=== PATIENT | female | born 1945 | race Two or more races ===

== ENCOUNTER 2020-02-18 20:25 | Inpatient (IN) | payer MEDICARE, BC ==
[~2020-02-18] VITALS: Ht 157.5 cm; Wt 102.1 kg
[~2020-02-18 20:25] MED LIST: ALBU90AE INH; ASPI-1158 PO; FURO40TA5 PO; ISOS30TA6 PO; LEVOTHYROXINE; LOPE2CAP PO; LOSA25TA3 PO; METO-396 PO; NIFE90TA2 MT; NITR0.4T49 SL; OMEP20CA14 PO; PRAS10TA9 PO; SEVE0.8P PO; SIMV80TA90 MT
[2020-02-18 22:17] LABS: HEMATOCRIT. 26.6 % (36.0-48.0); HEMOGLOBIN. 8.9 g/dL (12.0-16.0); MEAN CORPUSCULAR HEMOGLOBIN 32.9 pg (28.0-32.0); MEAN CORPUSCULAR VOLUME 98.3 fL (81.0-99.0); MEAN PLATELET VOLUME 7.4 fl (7.4-10.4); PLATELET 197 x1000/uL (130-400); RED BLOOD CELL COUNT 2.71 mill/uL (4.2-5.4); RED CELL DISTRIBUTION WIDTH 20.3 % (11.6-14.6)
[2020-02-18 22:20] LABS: CHLORIDE 97 mEq/L (98-107)
[2020-02-18 22:31] LABS: PLATELET ESTIMATE NORMAL
[2020-02-19] VITALS (35 sets, daily range): BP systolic 59–168; BP diastolic 18–126
[2020-02-19] MEDS ORDERED: IPRATROPIUM/ALBUTEROL 0.5-3(2.5)MG/3ML NEB HHN PRN (10:45)
[2020-02-19] MEDS ORDERED: ASPI-1079 PO (10:47)
[2020-02-19] MEDS ORDERED: NYST100026 (10:50)
[2020-02-19] MEDS ORDERED: FAMO20TA8 PO (10:52)
[2020-02-19] MEDS ORDERED: DOCU-138 MT (10:52)
[2020-02-19] MEDS: AZITHROMYCIN 500 MG TABLET PO SCH (11:24)
[2020-02-19] MEDS: ENOXAPARIN 40MG/0.4ML SYR SUBCUT SCH (11:24)
[2020-02-19] MEDS ORDERED: VECURONIUM BROMIDE 10 MG/VIAL IV ONE (12:53)
[2020-02-19] MEDS ORDERED: ETOMIDATE 2MG/ML 10ML VIAL IV ONE (12:53)
[2020-02-19] MEDS ORDERED: DEXTROSE 50% WATER 50ML SYRINGE IV PRN (13:00)
[2020-02-19] MEDS ORDERED: VANCOMYCIN 1,750 MG in DEXT 5% WATER 500 ML IV SCH (15:00)
[2020-02-19 15:25] LABS: BG BASE EXCESS -6.6 mmol/L (-2.0-2.0); BG CARBOXYHEMOGLOBIN 0.3 % (0.5-1.5); BG DEOXYHEMOGLOBIN 0.9 % (0.0-5.0); BG FRACTION INSPIRED OXYGEN 100; BG HCO3 ACT 19.5 mmol/L (22.0-26.0); BG METHEMOGLOBIN 0.4 % (0.0-1.5); BG OXYGEN SATURATION 99.1 % (92.0-98.5); BG OXYHEMOGLOBIN 98.4 % (94.0-97.0); BG PCO2 41.1 mmHg (35.0-45.0); BG PH 7.293 (7.350-7.450); BG PO2 185.5 mmHg (75.0-100.0); BG SAMPLE SITE RIGHT BRACHIAL; BG TIDAL VOLUME(mL) 550 mL; BG TOTAL HEMOGLOBIN 10.1 g/dL (12.0-18.0); BG VENT MODE VENT - A/C; BG VENT RATE 14 set
[2020-02-19] MEDS: BLOOD SUGAR DIAGNOSTIC STRIP TEST SCH ×2 (16:30→21:31)
[2020-02-19] MEDS: PROPOFOL 10MG/ML 100ML 100 ML IV PRN ×3 (16:32→19:55)
[2020-02-19] MEDS: INSULIN LISPRO 100 UNITS/ML SUBCUT SCH ×2 (17:00→21:32)
[2020-02-19] MEDS: FENTANYL CITRATE/PF 500 MCG in SODIUM CHLORIDE 0.9% 40 ML IV PRN ×2 (19:00→23:47)
[2020-02-19] MEDS: CEFTRIAXONE 1 G PREMIX 50 ML IV SCH (19:30)
[2020-02-19] MEDS: EPOETIN ALFA 10000UNITS/ML VIAL SUBCUT SCH (21:09)
[2020-02-19] MEDS: INSULIN GLARGINE UD 100 UNITS/ML SYR SUBCUT SCH (21:09)
[2020-02-19] MEDS ORDERED: SODIUM CHLORIDE 0.9% 250 ML IV ONE (21:45)
[2020-02-19] MEDS ORDERED: DOPAMINE 400MG/250ML PREMIX 250 ML IV PRN (21:45)
[2020-02-20] VITALS (99 sets, daily range): BP systolic 37–181; BP diastolic 15–144
[2020-02-20] MEDS: FENTANYL CITRATE/PF 500 MCG in SODIUM CHLORIDE 0.9% 40 ML IV PRN ×3 (04:29→19:07)
[2020-02-20 05:11] LABS: BASOPHILS % 0.3 % (0.0-2.0); EOSINOPHILS % 0.1 % (0.0-5.0); HEMATOCRIT. 28.2 % (36.0-48.0); HEMOGLOBIN. 9.2 g/dL (12.0-16.0); LYMPHOCYTES % 7.6 % (20.0-50.0); MEAN CORPUSCULAR HEMOGLOBIN 32.8 pg (28.0-32.0); MEAN PLATELET VOLUME 7.7 fl (7.4-10.4); MONOCYTES % 5.9 % (2.0-8.0); NEUTROPHILS % 86.1 % (40.0-76.0); PLATELET 216 x1000/uL (130-400); RED BLOOD CELL COUNT 2.82 mill/uL (4.2-5.4); RED CELL DISTRIBUTION WIDTH 20.7 % (11.6-14.6)
[2020-02-20] MEDS: BLOOD SUGAR DIAGNOSTIC STRIP TEST SCH ×4 (06:54→21:00)
[2020-02-20] MEDS: INSULIN LISPRO 100 UNITS/ML SUBCUT SCH ×4 (06:54→21:00)
[2020-02-20] MEDS ORDERED: PHENYLEPHRINE 20 MG in DEXT 5% WATER 248 ML IV PRN (08:15)
[2020-02-20] MEDS: IPRATROPIUM BROMIDE (0.02%) 0.5MG/2.5ML NEB HHN SCH ×3 (08:25→20:40)
[2020-02-20] MEDS: ASPIRIN 81MG TABLET PO SCH (09:00)
[2020-02-20] MEDS: AZITHROMYCIN 500 MG TABLET PO SCH (09:00)
[2020-02-20] MEDS: PANTOPRAZOLE SODIUM 40 MG/VIAL IV SCH (09:40)
[2020-02-20] MEDS: INSULIN GLARGINE UD 100 UNITS/ML SYR SUBCUT SCH ×2 (10:00→22:34)
[2020-02-20] MEDS: ENOXAPARIN 40MG/0.4ML SYR SUBCUT SCH (11:00)
[2020-02-20] MEDS ORDERED: NOREPINEPHRINE 4 MG in DEXT 5% WATER 250 ML IV PRN (11:15)
[2020-02-20] MEDS ORDERED: PHENYLEPHRINE IV PRN (11:54)
[2020-02-20] MEDS ORDERED: DEXT 5% IV PRN (11:54)
[2020-02-20] MEDS ORDERED: NOREPINEPHRINE 16 MG in DEXT 5% WATER 250 ML IV PRN (11:54)
[2020-02-20] MEDS ORDERED: WATER IV PRN (11:54)
[2020-02-20] MEDS: CEFTRIAXONE 1 G PREMIX 50 ML IV SCH (14:00)
[2020-02-20] MEDS: DAPTOMYCIN 250 MG in SODIUM CHLORIDE 0.9% 50 ML IV SCH (16:00)
[2020-02-20] MEDS ORDERED: VANCOMYCIN 1,750 MG in DEXT 5% WATER 500 ML IV SCH (16:00)
[2020-02-20] MEDS: PHENYLEPHRINE 40 MG in DEXTROSE 5% WATER 250 ML IV PRN ×2 (16:18→20:14)
[2020-02-20] MEDS ORDERED: DIGOXIN 500MCG/2ML AMP IV NR (16:30)
[2020-02-20] MEDS: DILTIAZEM HCL 125 MG in DEXT 5% WATER 100 ML IV PRN (19:06)
[2020-02-20 20:15] LABS: BG BASE EXCESS -19.3 mmol/L (-2.0-2.0); BG CARBOXYHEMOGLOBIN 0.2 % (0.5-1.5); BG DEOXYHEMOGLOBIN 2.4 % (0.0-5.0); BG FRACTION INSPIRED OXYGEN 100; BG HCO3 ACT 9.2 mmol/L (22.0-26.0); BG METHEMOGLOBIN 1.4 % (0.0-1.5); BG OXYGEN SATURATION 97.6 % (92.0-98.5); BG PCO2 30.6 mmHg (35.0-45.0); BG PH 7.094 (7.350-7.450); BG SAMPLE SITE LEFT RADIAL; BG TIDAL VOLUME(mL) 550 mL; BG TOTAL HEMOGLOBIN 10.5 g/dL (12.0-18.0); BG VENT MODE VENT - A/C; BG VENT RATE 14 set
[2020-02-20] MEDS ORDERED: SODIUM BICARBONATE 8.4% 1 MEQ/ML 50ML SYR IV NR (21:39)
[2020-02-21] VITALS (70 sets, daily range): BP systolic 40–174; BP diastolic 20–149
[2020-02-21] MEDS: IPRATROPIUM BROMIDE (0.02%) 0.5MG/2.5ML NEB HHN SCH ×3 (02:10→20:37)
[2020-02-21] MEDS: PHENYLEPHRINE 40 MG in DEXTROSE 5% WATER 250 ML IV PRN ×2 (03:59→07:48)
[2020-02-21 04:54] LABS: HEMATOCRIT. 25.9 % (36.0-48.0); HEMOGLOBIN. 8.4 g/dL (12.0-16.0); MEAN CORPUSCULAR HEMOGLOBIN 32.6 pg (28.0-32.0); MEAN CORPUSCULAR VOLUME 100.1 fL (81.0-99.0); PLATELET 237 x1000/uL (130-400); RED BLOOD CELL COUNT 2.59 mill/uL (4.2-5.4); RED CELL DISTRIBUTION WIDTH 20.7 % (11.6-14.6)
[2020-02-21] MEDS: FENTANYL CITRATE/PF 500 MCG in SODIUM CHLORIDE 0.9% 40 ML IV PRN ×3 (06:01→17:21)
[2020-02-21] MEDS: NOREPINEPHRINE 16 MG in DEXTROSE 5% WATER 250 ML IV PRN ×2 (06:32→17:53)
[2020-02-21] MEDS: BLOOD SUGAR DIAGNOSTIC STRIP TEST SCH ×4 (06:33→21:00)
[2020-02-21] MEDS: INSULIN LISPRO 100 UNITS/ML SUBCUT SCH ×4 (06:35→22:57)
[2020-02-21 08:36] LABS: NUCLEATED RED BLOOD CELLS 3 /100 WBC; PLATELET ESTIMATE NORMAL
[2020-02-21] MEDS: PANTOPRAZOLE SODIUM 40 MG/VIAL IV SCH (09:26)
[2020-02-21] MEDS: ASPIRIN 81MG TABLET PO SCH (09:26)
[2020-02-21] MEDS: AZITHROMYCIN 500 MG TABLET PO SCH (09:26)
[2020-02-21] MEDS ORDERED: LORAZEPAM 2MG/ML CPJ IV NR (09:26)
[2020-02-21] MEDS ORDERED: LORAZEPAM 2MG/ML CPJ ONE (09:32)
[2020-02-21 09:43] LABS: BG BASE EXCESS -12.2 mmol/L (-2.0-2.0); BG DEOXYHEMOGLOBIN 19.9 % (0.0-5.0); BG FRACTION INSPIRED OXYGEN 100; BG HCO3 ACT 11.9 mmol/L (22.0-26.0); BG METHEMOGLOBIN 0.1 % (0.0-1.5); BG OXYGEN SATURATION 80.1 % (92.0-98.5); BG PCO2 21.6 mmHg (35.0-45.0); BG PH 7.359 (7.350-7.450); BG PO2 56.6 mmHg (75.0-100.0); BG SAMPLE SITE RIGHT BRACHIAL; BG TIDAL VOLUME(mL) 550 mL; BG TOTAL HEMOGLOBIN 7.6 g/dL (12.0-18.0); BG VENT MODE VENT - A/C; BG VENT RATE 14 set
[2020-02-21] MEDS: INSULIN GLARGINE UD 100 UNITS/ML SYR SUBCUT SCH (10:00)
[2020-02-21] MEDS ORDERED: SODIUM BICARBONATE 8.4% 1 MEQ/ML 50ML SYR IV SCH (11:00)
[2020-02-21] MEDS ORDERED: VASOPRESSIN 10 UNIT in SODIUM CHLORIDE 0.9% 99.5 ML IV PRN (11:00)
[2020-02-21] MEDS: ENOXAPARIN 40MG/0.4ML SYR SUBCUT SCH (12:49)
[2020-02-21 12:54] LABS: COVID-19 PCR RNA NOT DETECTED
[2020-02-21 13:24] LABS: BG BASE EXCESS -3.6 mmol/L (-2.0-2.0); BG CARBOXYHEMOGLOBIN 0.3 % (0.5-1.5); BG DEOXYHEMOGLOBIN 9.6 % (0.0-5.0); BG FRACTION INSPIRED OXYGEN 100; BG HCO3 ACT 21.2 mmol/L (22.0-26.0); BG METHEMOGLOBIN 0.4 % (0.0-1.5); BG OXYGEN SATURATION 90.3 % (92.0-98.5); BG OXYHEMOGLOBIN 89.7 % (94.0-97.0); BG PCO2 36.9 mmHg (35.0-45.0); BG PH 7.377 (7.350-7.450); BG PO2 66.3 mmHg (75.0-100.0); BG SAMPLE SITE RIGHT BRACHIAL; BG TIDAL VOLUME(mL) 550 mL; BG TOTAL HEMOGLOBIN 7.8 g/dL (12.0-18.0); BG VENT MODE VENT - A/C- PRVC; BG VENT RATE 20 set
[2020-02-21] MEDS: CEFTRIAXONE 1 G PREMIX 50 ML IV SCH (14:15)
[2020-02-21] MEDS: DAPTOMYCIN 250 MG in SODIUM CHLORIDE 0.9% 50 ML IV SCH (17:18)
[2020-02-21] MEDS: PHENYLEPHRINE 80 MG in DEXT 5% WATER 492 ML IV PRN (17:53)
[2020-02-21] MEDS: DILTIAZEM HCL 125 MG in DEXT 5% WATER 100 ML IV PRN (17:53)
[2020-02-21] MEDS ORDERED: INSULIN GLARGINE UD 100 UNITS/ML SYR SUBCUT SCH (22:00)
[2020-02-22] VITALS (68 sets, daily range): BP systolic 91–169; BP diastolic 20–105
[2020-02-22] MEDS: PHENYLEPHRINE 80 MG in DEXT 5% WATER 492 ML IV PRN ×3 (00:15→22:09)
[2020-02-22] MEDS: FENTANYL CITRATE/PF 500 MCG in SODIUM CHLORIDE 0.9% 40 ML IV PRN ×3 (00:15→18:57)
[2020-02-22] MEDS: NOREPINEPHRINE 32 MG in DEXT 5% WATER 468 ML IV PRN ×2 (00:16→18:56)
[2020-02-22] MEDS: IPRATROPIUM BROMIDE (0.02%) 0.5MG/2.5ML NEB HHN SCH ×4 (03:58→20:30)
[2020-02-22 05:42] LABS: HEMATOCRIT. 24.3 % (36.0-48.0); MEAN CORPUSCULAR HEMOGLOBIN 32.3 pg (28.0-32.0); MEAN CORPUSCULAR VOLUME 97.4 fL (81.0-99.0); MEAN PLATELET VOLUME 8.4 fl (7.4-10.4); PLATELET 186 x1000/uL (130-400); RED CELL DISTRIBUTION WIDTH 20.9 % (11.6-14.6)
[2020-02-22] MEDS: BLOOD SUGAR DIAGNOSTIC STRIP TEST SCH ×4 (06:30→21:42)
[2020-02-22] MEDS: INSULIN LISPRO 100 UNITS/ML SUBCUT SCH ×4 (07:10→21:41)
[2020-02-22 08:16] LABS: NUCLEATED RED BLOOD CELLS 2 /100 WBC
[2020-02-22] MEDS: PANTOPRAZOLE SODIUM 40 MG/VIAL IV SCH (09:07)
[2020-02-22] MEDS: AZITHROMYCIN 500 MG TABLET PO SCH (09:07)
[2020-02-22] MEDS: ASPIRIN 81MG TABLET PO SCH (09:07)
[2020-02-22 09:12] LABS: BG BASE EXCESS 0.3 mmol/L (-2.0-2.0); BG CARBOXYHEMOGLOBIN 0.4 % (0.5-1.5); BG DEOXYHEMOGLOBIN 2.3 % (0.0-5.0); BG FRACTION INSPIRED OXYGEN 50; BG HCO3 ACT 23.9 mmol/L (22.0-26.0); BG METHEMOGLOBIN 0.4 % (0.0-1.5); BG OXYGEN SATURATION 97.7 % (92.0-98.5); BG OXYHEMOGLOBIN 96.9 % (94.0-97.0); BG PCO2 34.4 mmHg (35.0-45.0); BG PO2 100.5 mmHg (75.0-100.0); BG SAMPLE SITE RIGHT RADIAL; BG TIDAL VOLUME(mL) 550 mL; BG TOTAL HEMOGLOBIN 8.9 g/dL (12.0-18.0); BG VENT MODE VENT - A/C; BG VENT RATE 20 set
[2020-02-22] MEDS: ENOXAPARIN 40MG/0.4ML SYR SUBCUT SCH (11:09)
[2020-02-22] MEDS ORDERED: ENOXAPARIN 80MG/0.8ML SYR SUBCUT NR (13:00)
[2020-02-22] MEDS ORDERED: ENOXAPARIN 120MG/0.8ML SYR SUBCUT SCH (13:00)
[2020-02-22 13:44] LABS: PLATELET ESTIMATE NORMAL
[2020-02-22] MEDS: CEFTRIAXONE 1 G PREMIX 50 ML IV SCH (14:25)
[2020-02-22] MEDS: DAPTOMYCIN 250 MG in SODIUM CHLORIDE 0.9% 50 ML IV SCH (15:49)
[2020-02-22 15:56] LABS: INR 1.5; PROTHROMBIN TIME 15.9 sec (9.6-11.0)
[2020-02-22] MEDS: EPOETIN ALFA 10000UNITS/ML VIAL SUBCUT SCH (21:40)
[2020-02-22] MEDS: INSULIN GLARGINE UD 100 UNITS/ML SYR SUBCUT SCH (21:41)
[2020-02-23] VITALS (115 sets, daily range): BP systolic 30–185; BP diastolic 19–109
[2020-02-23] MEDS: IPRATROPIUM BROMIDE (0.02%) 0.5MG/2.5ML NEB HHN SCH ×4 (02:44→20:20)
[2020-02-23 05:43] LABS: HEMATOCRIT. 23.5 % (36.0-48.0); HEMOGLOBIN. 7.7 g/dL (12.0-16.0); MEAN CORPUSCULAR HEMOGLOBIN 32.2 pg (28.0-32.0); MEAN CORPUSCULAR VOLUME 97.8 fL (81.0-99.0); MEAN PLATELET VOLUME 8.8 fl (7.4-10.4); PLATELET 147 x1000/uL (130-400); RED CELL DISTRIBUTION WIDTH 21.3 % (11.6-14.6)
[2020-02-23] MEDS: BLOOD SUGAR DIAGNOSTIC STRIP TEST SCH ×4 (06:30→21:24)
[2020-02-23] MEDS: INSULIN LISPRO 100 UNITS/ML SUBCUT SCH ×4 (06:38→21:23)
[2020-02-23] MEDS: FENTANYL CITRATE/PF 500 MCG in SODIUM CHLORIDE 0.9% 40 ML IV PRN ×3 (06:38→22:53)
[2020-02-23] MEDS: PHENYLEPHRINE 80 MG in DEXT 5% WATER 492 ML IV PRN ×3 (07:37→22:53)
[2020-02-23] MEDS ORDERED: DIGOXIN 500MCG/2ML AMP IV NR (09:00)
[2020-02-23] MEDS: AZITHROMYCIN 500 MG TABLET PO SCH (09:31)
[2020-02-23] MEDS: ASPIRIN 81MG TABLET PO SCH (09:31)
[2020-02-23] MEDS: PANTOPRAZOLE SODIUM 40 MG/VIAL IV SCH (09:31)
[2020-02-23 09:37] LABS: BG BASE EXCESS -2.7 mmol/L (-2.0-2.0); BG CARBOXYHEMOGLOBIN 0.6 % (0.5-1.5); BG DEOXYHEMOGLOBIN 1.5 % (0.0-5.0); BG FRACTION INSPIRED OXYGEN 50; BG HCO3 ACT 20.9 mmol/L (22.0-26.0); BG METHEMOGLOBIN 0.2 % (0.0-1.5); BG OXYGEN SATURATION 98.5 % (92.0-98.5); BG OXYHEMOGLOBIN 97.7 % (94.0-97.0); BG PCO2 31.3 mmHg (35.0-45.0); BG PH 7.443 (7.350-7.450); BG SAMPLE SITE RIGHT BRACHIAL; BG TIDAL VOLUME(mL) 400 mL; BG TOTAL HEMOGLOBIN 8.1 g/dL (12.0-18.0); BG VENT MODE VENT - A/C PRVC; BG VENT RATE 20 set
[2020-02-23 10:13] LABS: NUCLEATED RED BLOOD CELLS 10 /100 WBC
[2020-02-23 10:14] LABS: PLATELET ESTIMATE NORMAL
[2020-02-23] MEDS: INSULIN GLARGINE UD 100 UNITS/ML SYR SUBCUT SCH ×2 (10:28→21:24)
[2020-02-23] MEDS: MIDAZOLAM HCL 100 MG in DEXT 5% WATER 80 ML IV PRN (10:29)
[2020-02-23] MEDS: VASOPRESSIN 10 UNIT in SODIUM CHLORIDE 0.9% 99.5 ML IV PRN ×4 (10:32→22:24)
[2020-02-23] MEDS ORDERED: AMIODARONE HCL 150 MG in DEXT 5% WATER 100 ML IV ONE (11:45)
[2020-02-23] MEDS ORDERED: AMIODARONE HCL 900 MG in DEXT 5% WATER 482 ML IV PRN (12:00)
[2020-02-23 12:06] LABS: T4 FREE 1.09 ng/dL (0.76-1.46)
[2020-02-23] MEDS: ENOXAPARIN 120MG/0.8ML SYR SUBCUT SCH (13:00)
[2020-02-23] MEDS: CEFTRIAXONE 1 G PREMIX 50 ML IV SCH (14:07)
[2020-02-23] MEDS ORDERED: DAPTOMYCIN 500 MG in SODIUM CHLORIDE 0.9% 50 ML IV SCH (16:00)
[2020-02-23] MEDS: ACETAMINOPHEN 650MG/20.3ML UDC PO PRN (20:56)
[2020-02-24] VITALS (68 sets, daily range): BP systolic 47–212; BP diastolic 14–90
[2020-02-24] MEDS: IPRATROPIUM BROMIDE (0.02%) 0.5MG/2.5ML NEB HHN SCH ×4 (01:52→20:41)
[2020-02-24] MEDS: VASOPRESSIN 10 UNIT in SODIUM CHLORIDE 0.9% 99.5 ML IV PRN ×5 (05:19→21:48)
[2020-02-24] MEDS: FENTANYL CITRATE/PF 500 MCG in SODIUM CHLORIDE 0.9% 40 ML IV PRN ×2 (05:20→17:18)
[2020-02-24 05:32] LABS: HEMATOCRIT. 25.2 % (36.0-48.0); HEMOGLOBIN. 8.2 g/dL (12.0-16.0); MEAN CORPUSCULAR HEMOGLOBIN 32.3 pg (28.0-32.0); MEAN PLATELET VOLUME 9.1 fl (7.4-10.4); PLATELET 135 x1000/uL (130-400); RED BLOOD CELL COUNT 2.55 mill/uL (4.2-5.4)
[2020-02-24] MEDS: INSULIN LISPRO 100 UNITS/ML SUBCUT SCH ×4 (06:21→21:00)
[2020-02-24] MEDS: BLOOD SUGAR DIAGNOSTIC STRIP TEST SCH ×4 (06:30→21:00)
[2020-02-24] MEDS: NOREPINEPHRINE 32 MG in DEXT 5% WATER 468 ML IV PRN ×2 (07:08→21:48)
[2020-02-24 07:34] LABS: NUCLEATED RED BLOOD CELLS 1 /100 WBC; PLATELET ESTIMATE NORMAL
[2020-02-24] MEDS: PHENYLEPHRINE 80 MG in DEXT 5% WATER 492 ML IV PRN ×3 (08:03→21:47)
[2020-02-24] MEDS: PANTOPRAZOLE SODIUM 40 MG/VIAL IV SCH (09:29)
[2020-02-24] MEDS: AZITHROMYCIN 500 MG TABLET PO SCH (09:29)
[2020-02-24] MEDS: ASPIRIN 81MG TABLET PO SCH (09:29)
[2020-02-24] MEDS: INSULIN GLARGINE UD 100 UNITS/ML SYR SUBCUT SCH ×2 (09:34→22:00)
[2020-02-24 10:59] LABS: BG BASE EXCESS -17.3 mmol/L (-2.0-2.0); BG CARBOXYHEMOGLOBIN 0.5 % (0.5-1.5); BG DEOXYHEMOGLOBIN 17.1 % (0.0-5.0); BG FRACTION INSPIRED OXYGEN 60; BG HCO3 ACT 11.1 mmol/L (22.0-26.0); BG METHEMOGLOBIN 0.1 % (0.0-1.5); BG OXYGEN SATURATION 82.8 % (92.0-98.5); BG OXYHEMOGLOBIN 82.3 % (94.0-97.0); BG PCO2 36.5 mmHg (35.0-45.0); BG PH 7.102 (7.350-7.450); BG PO2 60.7 mmHg (75.0-100.0); BG SAMPLE SITE RIGHT BRACHIAL; BG TIDAL VOLUME(mL) 400 mL; BG TOTAL HEMOGLOBIN 8.8 g/dL (12.0-18.0); BG VENT MODE PRVC; BG VENT RATE 20 set
[2020-02-24] MEDS ORDERED: SODIUM BICARBONATE 8.4% 1 MEQ/ML 50ML SYR IV ONE (11:15)
[2020-02-24] MEDS: CEFTRIAXONE 1 G PREMIX 50 ML IV SCH (13:36)
[2020-02-24] MEDS: ENOXAPARIN 120MG/0.8ML SYR SUBCUT SCH (13:36)
[2020-02-24 14:38] LABS: BG BASE EXCESS -18.2 mmol/L (-2.0-2.0); BG CARBOXYHEMOGLOBIN 0.7 % (0.5-1.5); BG DEOXYHEMOGLOBIN 4.4 % (0.0-5.0); BG HCO3 ACT 9.5 mmol/L (22.0-26.0); BG METHEMOGLOBIN 0.4 % (0.0-1.5); BG OXYGEN SATURATION 95.6 % (92.0-98.5); BG OXYHEMOGLOBIN 94.5 % (94.0-97.0); BG PH 7.132 (7.350-7.450); BG PO2 108.9 mmHg (75.0-100.0); BG SAMPLE SITE RIGHT RADIAL; BG TIDAL VOLUME(mL) 400 mL; BG TOTAL HEMOGLOBIN 8.8 g/dL (12.0-18.0); BG VENT MODE VENT - A/C; BG VENT RATE 24 set
[2020-02-24] MEDS ORDERED: SODIUM BICARBONATE 150 MEQ in DEXTROSE 5% WATER 850 ML IV SCH (17:00)
[2020-02-24] MEDS: ACETAMINOPHEN 650MG/20.3ML UDC PO PRN (17:19)
[2020-02-24] MEDS: MIDAZOLAM HCL 100 MG in DEXT 5% WATER 80 ML IV PRN (17:19)
[2020-02-24] MEDS: EPOETIN ALFA 10000UNITS/ML VIAL SUBCUT SCH (21:53)
[2020-02-25] VITALS: BP 115/25
[2020-02-25 01:00] VITALS: BP 77/52
[2020-02-25 01:15] VITALS: BP 100/34
== END 2020-02-25 01:20 | disposition expired | DRG 870 ==
LOC: ER 20:25 → 7EST 22:16 → ENRESERV 22:22 → CANRESERV 22:22 → ENRESERV 02-19 08:02 → MICUSO 02-19 14:08
PROVIDERS: ADMIT Specialist; ATTEND Specialist
PROC: 5A1955Z Respiratory Ventilation, Greater than 96 Consecutive Hours (ICD-10-PCS; principal; 2020-02-19)
PROC: 0BH17EZ Insertion of Endotracheal Airway into Trachea, Via Natural or Artificial Opening (ICD-10-PCS; 2020-02-19)
PROC: 02HV33Z Insertion of Infusion Device into Superior Vena Cava, Percutaneous Approach (ICD-10-PCS; 2020-02-20)
PROC: B548ZZA Ultrasonography of Superior Vena Cava, Guidance (ICD-10-PCS; 2020-02-20)
PROC: 5A1D70Z Performance of Urinary Filtration, Intermittent, Less than 6 Hours Per Day (ICD-10-PCS; 2020-02-20)
PROC: 5A1D70Z Performance of Urinary Filtration, Intermittent, Less than 6 Hours Per Day (ICD-10-PCS; 2020-02-24)
PROC: 5A12012 Performance of Cardiac Output, Single, Manual (ICD-10-PCS; 2020-02-25)
DX: A41.81 Sepsis due to Enterococcus (principal); N18.6 End stage renal disease; E43 Unspecified severe protein-calorie malnutrition; J18.9 Pneumonia, unspecified organism; I50.43 Acute on chronic combined systolic (congestive) and diastolic (congestive) heart failure; R65.21 Severe sepsis with septic shock; G92 Toxic encephalopathy; J96.01 Acute respiratory failure with hypoxia; I21.A1 Myocardial infarction type 2; I13.2 Hypertensive heart and chronic kidney disease with heart failure and with stage 5 chronic kidney disease, or end stage renal disease; E87.1 Hypo-osmolality and hyponatremia; J44.1 Chronic obstructive pulmonary disease with (acute) exacerbation; I42.9 Cardiomyopathy, unspecified; Z68.41 Body mass index [BMI] 40.0-44.9, adult; J44.0 Chronic obstructive pulmonary disease with (acute) lower respiratory infection; I48.92 Unspecified atrial flutter; Z16.21 Resistance to vancomycin; T82.868A Thrombosis due to vascular prosthetic devices, implants and grafts, initial encounter; E87.2 Acidosis; A41.01 Sepsis due to Methicillin susceptible Staphylococcus aureus; E11.22 Type 2 diabetes mellitus with diabetic chronic kidney disease; D63.8 Anemia in other chronic diseases classified elsewhere; E87.5 Hyperkalemia; I65.21 Occlusion and stenosis of right carotid artery; E78.5 Hyperlipidemia, unspecified; E66.01 Morbid (severe) obesity due to excess calories; M19.90 Unspecified osteoarthritis, unspecified site; I25.10 Atherosclerotic heart disease of native coronary artery without angina pectoris; I48.0 Paroxysmal atrial fibrillation; G47.33 Obstructive sleep apnea (adult) (pediatric); I27.21 Secondary pulmonary arterial hypertension; I46.9 Cardiac arrest, cause unspecified; Z99.2 Dependence on renal dialysis; Z88.0 Allergy status to penicillin; Z88.8 Allergy status to other drugs, medicaments and biological substances; Z79.82 Long term (current) use of aspirin; Z79.84 Long term (current) use of oral hypoglycemic drugs; Z79.899 Other long term (current) drug therapy; I25.2 Old myocardial infarction; Z86.73 Personal history of transient ischemic attack (TIA), and cerebral infarction without residual deficits; I34.0 Nonrheumatic mitral (valve) insufficiency; S30.1XXA Contusion of abdominal wall, initial encounter; Y84.1 Kidney dialysis as the cause of abnormal reaction of the patient, or of later complication, without mention of misadventure at the time of the procedure; Y92.89 Other specified places as the place of occurrence of the external cause; Z03.818 Encounter for observation for suspected exposure to other biological agents ruled out; X58.XXXA Exposure to other specified factors, initial encounter; Y93.89 Activity, other specified; Y99.8 Other external cause status
CPT/HCPCS: 36415; 36600; 71045; 76937; 80048; 80053; 82375; 82805; 82962; 83605; 83735; 83880; 84439; 84443; 84478; 84484; 85025; 87070; 87186; 87635; 87804; 93005; 93306; 94003; 94640; 96365; 99285; C1752; C9113; J0282; J0696; J0878; J0885; J1160; J1265; J1650; J1815; J2060; J2250; J2370; J2704; J3010; J3370; J3490; J7050; J7060; J7070